=== PATIENT | male | born 1950 | race Caucasian/White ===

== ENCOUNTER → 2018-11-14 | Outpatient (CLI) | payer BC, MEDICARE ==
[~2018-11-14] MED LIST: ALL100 PO; ALL300 PO; ALLO-2 PO; ANTI1CAP PO; ATE50 PO; AUG875 PO; AZIT500T47 PO; CA C1TAB85 PO; CALC-1088 PO; CALC-852 PO; CALC200 PO; CHOL200018 PO; CHRO200C6 PO; CINN500C12 PO; CLON-303 *; CLON-303 PO; CLON-329 PO; CLON-393 PO; DIS250 PO; FAM20 PO; FLAX100030 PO; GLUC-129 PO; GREE250C4 PO; HYDR12.558 PO; IBU600 PO; IOPAMIDOL 76% 150 ML INFUS BTL 150 ML ONE; KET10 PO; LEV500 PO; LIS20 PO; LISI-374 PO; LOM PO; LOR5 PO; LOR5/325 PO; MAGN250T29 PO; MAGN30TA5 PO; MAGN400C PO; METXL50 PO; MILK150C2 PO; MIR PO; MULT-1335 PO; MULT-1350 PO; MULT-885 PO; MULT1CAP59 PO; NITRIC OXIDE PO; OCU PO; OMEG-11 PO; OMEG-26 PO; OMEG500C5 PO; PER PO; PHENA200 PO; PHYT100T4 PO; POTA99TA12 PO; POTA99TA13 PO; PRED20TA6 PO; SAW1000C PO; SAW80CAP4 PO; UBID10CA8 PO; VIT-22 PO; VIT1CAPS29 PO; VITA1CAP46 PO; [UNRECOGNIZED DRUG - CODE] MC; [UNRECOGNIZED DRUG - CODE] PO; [UNRECOGNIZED DRUG - CODE] PO; [UNRECOGNIZED DRUG - CODE] PO; [UNRECOGNIZED DRUG - MIXTURE] PO
--- NOTE | 2018-11-14 09:51 | RADIOLOGY IMAGING REPORT ---
FACILITY: [facility] PATIENT NAME: Giovany Kamara : 1950 MR: [id number] V: [id number] EXAM DATE: ORDERING PHYSICIAN: HUBERT JOHANSEN TECHNOLOGIST: Location: [facility] [place] Patient: Giovany Kamara : 1950 Visit/Account:[id number] Date of Sevice: 11/14/2018 CT ABDOMEN PELVIS W/ CON HISTORY: Adenocarcinoma the prostate TECHNIQUE: Following administration of IV contrast contiguous axial images acquired through the abdom en/pelvis. Coronal and sagittal reformatting also performed.Dose Lowering Technique One of the following dose optimization techniques was utilized in the performance of this exam: Autom ated exposure control; adjustment of the mA and/or kV according to the patient's size; or use of an i terative reconstruction technique. Specific details can be referenced in the facility's radiology C T exam operational policy. CONTRAST: 75 mL Isovue-370 COMPARISON: CT abdomen pelvis October 21, 2012 FINDINGS: Visualized lung bases: Negative. Hepatobiliary: Negative. Spleen: Negative. Adrenals: Negative. Pancreas: Negative. Kidneys ureters or bladder: There is moderate perinephric stranding bilaterally. Bladder wall appear s mildly thickened Genitalia: There postsurgical changes from a prostatectomy. There are bilateral hydroceles GI: There is diverticulosis of the left-sided the colon although no CT evidence of acute diverticuli tis. There is a small diverticulum projecting from the medial border of the gastric fundus Vessels/spaces/nodes: Negative. Bones/soft tissues: There is a small right inguinal hernia containing fat. There are extensive spon dylotic changes of the visualized thoracolumbar spine. No aggressive appearing bone lesions are seen Additional findings: None pertinent. IMPRESSION: There is moderate perinephric stranding bilaterally. This mild thickening the bladder wall There are postsurgical changes from prostatectomy Additional chronic findings as described Report Dictated By: Adilia Phillips MD at 11/14/2018 9:33 AM Report E-Signed By: Adilia Phillips MD at 11/14/2018 9:46 AM WSN:[email or web address]
--- NOTE | 2018-11-14 15:08 | RADIOLOGY IMAGING REPORT ---
FACILITY: [facility] PATIENT NAME: Giovany Kamara : 1950 MR: [id number] V: [id number] EXAM DATE: ORDERING PHYSICIAN: HUBERT JOHANSEN TECHNOLOGIST: Location: [facility] [place] Patient: Giovany Kamara : 1950 Visit/Account:[id number] Date of Sevice: 11/14/2018 NM BONE SCAN COMPLETE HISTORY: Prostate cancer TECHNIQUE: 24.9 mCi technetium 99m HDP was injected intravenously. Delayed anterior and posterior wh ole body gamma camera images were obtained. Additional gamma camera images: Right left lateral skull COMPARISON: None. FINDINGS: Bone radiotracer activity: There are multifocal areas of degenerative type uptake seen appearing sim ilar to the prior bone scan. This includes the shoulders the wrists the knees feet and ankles and el bows. There are photopenic defects at the knee suggesting bilateral knee arthroplasties. There is a focal area of isotope uptake seen over the right side of the anterior mandible. By history the yasmine ent has a lump in his, in that location. This may represent an infectious or neoplastic process with in the mandible there for clinical correlation needed. This is an unlikely spot for metastasis. Extraosseous radiotracer activity: Unremarkable. Renal and urinary collecting system activity: Unremarkable. IMPRESSION: Multifocal areas of degenerative type uptake as described Focal area of isotope uptake over the right side of the anterior mandible. By history the patient ybarra s a lump in this location. This may represent an infectious or neoplastic process therefore clinical correlation needed. Report Dictated By: Adilia Phillips MD at 11/14/2018 3:00 PM Report E-Signed By: Adilia Phillips MD at 11/14/2018 3:04 PM WSN:[email or web address]
== END ==
LOC: CT 01:12
DX: K57.30 Diverticulosis of large intestine without perforation or abscess without bleeding (principal); Z98.890 Other specified postprocedural states; K40.30 Unilateral inguinal hernia, with obstruction, without gangrene, not specified as recurrent; M47.895 Other spondylosis, thoracolumbar region
CPT/HCPCS: 74177; 78306; A9503; Q9967